=== PATIENT | female | born 1990 | race Caucasian/White ===

== ENCOUNTER 2018-12-18 19:34 | Emergency (ER) | payer MEDICAID, SELFPAY ==
[2018-12-18 19:36] VITALS: BP 115/79; PULSE 102; RESP 14; TEMP 36.6; O2SAT 97; BMI 23.9
--- NOTE | 2018-12-18 19:47 | ED.DCSUM_ITS ---
History of Present Illness Chief Complaint: Abd Pain Detail of Chief Complaint: Abdominal pain, nausea, diarrhea Onset: Days Context: Gradual Onset Narrative: Patient was seen by her PCP 9 days ago and found to have strep pharyngitis. At that time she been having fever and sore throat. She was started on Augmentin. A couple days after starting the antibiotics she developed nausea, upper abdominal cramping, and diarrhea. She stopped the antibiotic after 5 days of medication. She states the diarrhea is starting to improve, but she still has intermittent upper abdominal cramping and spasms. No further fever has been noted. Throat is not painful, but she states she has no appetite and does not want to eat. Past Medical History - Allergies and Home Meds Allergies/Adverse Reactions: Allergies No Known Allergies Allergy (Verified 12/18/18 19:35) Primary Care Physician: Brian Gamboa MD [Primary Care Provider] - Prior records reviewed: Yes Past Medical History: - - Reviewed Lives: With Family Smoking Status: Current every day smoker Review of Systems General: Denies: Chills Eyes: Denies: Visual changes - bilaterally ENT: Denies: Bilateral ear pain Cardiovascular: Denies: Chest pain Respiratory: Denies: Dyspnea Gastrointestinal: Reports: Abdominal pain, Nausea, Diarrhea. Denies: Vomiting Genitourinary: Denies: Dysuria Musculoskeletal: Denies: Back pain Skin: Denies: Rash Neurological: Denies: Headache Endocrine: Denies: Polyuria, Polydipsia Hematologic: Denies: Easy bruising Allergy: Denies: Uticaria Physical Exam Vital Signs/Narrative: Vital Signs Temp Pulse Resp BP Pulse Ox 12/18/18 19:36 97.9 F 102 H 14 115/79 97 Inital Vital Signs reviewed: Yes General: Well nourished, Well developed Eyes: Perrl, EOMI ENT: Moist mucous membranes Neck: Supple Cardiovascular: Regular rate, Regular rhythm Respiratory: No distress, CTA bilaterally Abdomen: Soft, Tender - Mild epigastric tenderness., Hypoactive bowel sounds. Negative for: Guarding, Rebound tenderness Back: Nontender Extremities: Nontender Skin: Normal color, No rash Neurological: Alert, Oriented x3 Psychological: Normal affect Diagnostic/Tx/Re-eval Laboratory Results 12/18/18 12/18/18 12/18/18 20:04 20:04 20:04 WBC 9.2 RBC 4.70 Hgb 14.3 Hct 43.1 MCV 91.7 MCH 30.4 MCHC 33.2 RDW Std Deviation 40.0 RDW Coeff of Adelita 11.9 Plt Count 288 MPV 8.4 Immature Gran % (Auto) 0.300 Neut % (Auto) 56.4 Lymph % (Auto) 34.1 [place] % (Auto) 7.0 Eos % (Auto) 1.9 Baso % (Auto) 0.3 Absolute Neuts (auto) 5.2 Absolute Lymphs (auto) 3.15 Nucleated RBC % 0 Sodium 140 Potassium 3.7 Chloride 108 H Carbon Dioxide 29.0 Anion Gap 3 L BUN 17 Creatinine 0.74 Estim Creat Clear Calc 88.72 Est GFR (MDRD) Af Amer 118 Est GFR (MDRD) Non-Af 98 BUN/Creatinine Ratio 22.8 H Glucose 142 H Calcium 9.0 Total Bilirubin 0.20 Direct Bilirubin 0.06 AST 16 ALT 30 Alkaline Phosphatase 96 Total Protein 7.0 Albumin 3.8 Globulin 3.2 Lipase 261 Serum , Qual NEGATIVE Urine Color Urine Clarity Urine pH Ur Specific [place] Urine Protein Urine Glucose (UA) Urine Ketones Urine Occult Blood Urine Nitrite Urine Bilirubin Urine Urobilinogen Ur Leukocyte Esterase Urine RBC Urine WBC Ur Squamous Epith Cells Amorphous Sediment Urine Bacteria Coarse Granular Casts Urine Mucus 12/18/18 20:25 WBC RBC Hgb Hct MCV MCH MCHC RDW Std Deviation RDW Coeff of Adelita Plt Count MPV Immature Gran % (Auto) Neut % (Auto) Lymph % (Auto) [place] % (Auto) Eos % (Auto) Baso % (Auto) Absolute Neuts (auto) Absolute Lymphs (auto) Nucleated RBC % Sodium Potassium Chloride Carbon Dioxide Anion Gap BUN Creatinine Estim Creat Clear Calc Est GFR (MDRD) Af Amer Est GFR (MDRD) Non-Af BUN/Creatinine Ratio Glucose Calcium Total Bilirubin Direct Bilirubin AST ALT Alkaline Phosphatase Total Protein Albumin Globulin Lipase Serum , Qual Urine Color Yellow Urine Clarity Cloudy Urine pH 7.0 Ur Specific [place] 1.015 Urine Protein Negative Urine Glucose (UA) Normal Urine Ketones Negative Urine Occult Blood 10 H Urine Nitrite Negative Urine Bilirubin Negative Urine Urobilinogen Normal Ur Leukocyte Esterase Negative Urine RBC 0-5 SEEN Urine WBC 0-5 SEEN Ur Squamous Epith Cells 0-5 SEEN Amorphous Sediment 1+ Urine Bacteria 0 SEEN Coarse Granular Casts 0-5 SEEN Urine Mucus 0 SEEN - Medical Decision Making Patient was given IV fluids, Protonix, and Bentyl. On repeat evaluation she feels significantly improved. She will be given prescriptions for Prilosec and Bentyl at home. ED Disposition - Plan for ED Patient: Disposition: Home or Assisted Living Diagnosis: Gastritis Instructions: GASTRITIS vs. ULCER Prescriptions: Dicyclomine HCl [Bentyl] 20 mg PO TIDAC PRN #20 capsule PRN Reason: Pain Omeprazole [Prilosec] 20 mg PO DAILY #30 capsule Referrals: Brian Gamboa MD [Primary Care Provider] - 1-2 Weeks
[2018-12-18 20:10] LABS: Absolute Lymphocyte Count 3.15 X10^3/uL (0.83-4.51); Absolute Neutrophil Count 5.2 X10^3/uL (2.0-7.7); Basophil# 0.03 X10^3/uL; Basophil% 0.3 % (0-1); Eosinophil# 0.18 X10^3/uL; Eosinophils% 1.9 % (0-5); Hematocrit 43.1 % (37-47); Hemoglobin 14.3 g/dL (12.0-15.0); Lymphocyte # 3.15 X10^3/ul (4.0); Lymphocyte % 34.1 % (19-41); Mean Corp Hgb Conc 33.2 g/dL (32-36); Mean Corpuscular Hgb 30.4 pg (27.0-32.0); Mean Corpuscular Volume 91.7 fL (81-99); Mean Platelet Vol. 8.4 fl (6.2-12.0); Monocyte# 0.65 X10^3/uL; NRBC Flagged by Analyzer 0 % (0-5); Neutrophil % 56.4 % (47-70); Platelet Count 288 K/mm3 (150-450); RBC Distribution Width CV 11.9 % (11.6-14.6); White Blood Count 9.2 K/mm3 (4.4-11.0)
[2018-12-18] MEDS: 0.9% Normal Saline 1,000 ML 1000 ML IV (20:10)
[2018-12-18] MEDS: Dicyclomine 20 MG/2 ML Vial IM (20:10)
[2018-12-18 20:29] LABS: Internal QC Validated? YES +Cl - CLEAR BKGD; Pregnancy, Serum, hCG Quali. NEGATIVE Negative
[2018-12-18 20:30] LABS: Bacteria 0 SEEN /hpf (None Seen); Mucous, Urine 0 SEEN /hpf (<or=2+)
[2018-12-18 20:32] LABS: AST(SGOT) 16 U/L (15-37); Alanine Aminotransfer ALT/SGPT 30 U/L (13-56); Albumin, Serum 3.8 g/dL (3.2-5.0); Alkaline Phosphatase 96 U/L (45-117); Anion Gap 3 (5-15); BUN 17 mg/dL (7-18); BUN/Creat Ratio 22.8 RATIO (10-20); Bilirubin, Direct 0.06 mg/dL (0.00-0.30); Chloride 108 mmol/L (98-107); Creatinine, Serum 0.74 mg/dL (0.55-1.02); EST Glomerular Filtration Rate 98 mL/min (>60); Est Glom Filt Rate - Afr Amer 118 mL/min (>60); Estimated Creatinine Clearance 88.72 ml/min; Globulin 3.2 g/dL (2.2-4.2); Glucose 142 mg/dL (74-106); Lipase 261 U/L (73-393); Potassium 3.7 mmol/L (3.5-5.1); Sodium Level 140 mmol/L (136-145)
[2018-12-18 20:35] LABS: Color, Urine Yellow (Yellow); Glucose, Dipstick Normal (Normal); Ketone-Dipstick Negative (Negative); Leukocyte Esterase-Dipstick Negative /ul (Negative); Nitrite-Dipstick Negative (Negative); Occult Blood-Urine 10 /ul (Negative); Protein-Dipstick Negative (Negative); Specific Gravity, Urine 1.015 (1.002-1.030); Urine Bilirubin Dipstick Negative (Negative); Urine Clarity Cloudy (Clear); Urine Urobilinogen Normal (Normal)
[2018-12-18 20:42] LABS: Coarse Granular Cast 0-5 SEEN /lpf (0-5 /lpf); Squamous Epithelial Cells - UA 0-5 SEEN /hpf (5-10)
[2018-12-18 20:44] LABS: Amorphous Sediment 1+; Red Blood Cells-Urine 0-5 SEEN /hpf (0-5); White Blood Cells 0-5 SEEN /hpf (0-5)
[2018-12-18 21:21] VITALS: BP 112/74; PULSE 78; RESP 15; O2SAT 99
== END 2018-12-18 21:20 | disposition home or self-care (01) ==
PROVIDERS: Emergency Provider Emergency Medicine; Family Provider Family Medicine; PCP Family Medicine
DX: K29.70 Gastritis, unspecified, without bleeding (principal); F17.200 Nicotine dependence, unspecified, uncomplicated
CPT/HCPCS: 80048; 80076; 81001; 83690; 84703; 85025; 96365; 96372; 99284; J7030; A4216

== ENCOUNTER 2019-02-23 21:27 | Emergency (ER) | payer MEDICAID, SELFPAY ==
[2019-02-23 21:27] VITALS: BP 119/84; PULSE 97; RESP 16; TEMP 36.9; O2SAT 99; BMI 24.5
--- NOTE | 2019-02-23 21:48 | ED.VIS.GEN ---
History of Present Illness Chief Complaint: Abscess Informant: Patient Onset: Month(s) Current Severity: Mild Narrative: The patient's had a lesion to her scalp left parietal region for about a year she indicates she can feel it when she washes her hair and abreu her hair she feels if the lesion is now more irritated she thought it might have been draining the other day when she took a shower she presents for evaluation concerned she has an abscess, she has no history of fever cough trauma, no history of any type of skin condition MRSA or infection Past Medical History - Allergies and Home Meds Allergies/Adverse Reactions: Allergies No Known Allergies Allergy (Verified 02/23/19 21:29) Primary Care Physician: Brian Gamboa MD [Primary Care Provider] - Past Medical History: - Smoking Status: Current every day smoker Review of Systems ROS: - Denies General: Denies: Chills, Fever, Sweats Eyes: Denies: Visual changes - bilaterally, Diplopia ENT: Denies: Rhinorrhea, Sore throat Cardiovascular: Denies: Chest pain, Palpitations Respiratory: Denies: Dyspnea, Cough, Dyspnea on exertion Gastrointestinal: Denies: Abdominal pain, Nausea, Vomiting, Diarrhea, Melena, Hematochezia Genitourinary: Denies: Dysuria, Hematuria, Frequency Musculoskeletal: Denies: Back pain, Extremity Pain Skin: Denies: Rash, Wounds Neurological: Denies: Headache, Weakness, Numbness Physical Exam Vital Signs/Narrative: Vital Signs Temp Pulse Resp BP Pulse Ox 02/23/19 21:27 98.4 F 97 16 119/84 H 99 General: Well nourished, Well developed, No Acute Distress Head: Normocephalic, Atraumatic, - - The left parietal area there is a circular 3 mm basically black dot it is not tender is not fluctuant it is not red it is not draining the rest of the scalp was unremarkable, there is no signs of any type infestations or lesions the rest of her general HEENT exam is unremarkable as is her general medical exam Eyes: Perrl, EOMI ENT: Moist mucous membranes, No rhinorrhea Neck: Supple, Nontender Cardiovascular: Regular rate, Regular rhythm, No murmurs Respiratory: No distress, CTA bilaterally, Chest nontender Abdomen: Soft, Nontender, Nondistended, Normal bowel sounds Back: Nontender, Normal Inspection Extremities: Nontender, No edema Skin: Normal color, No rash Neurological: Alert, Oriented x3, Cranial nerves II-XII grossly intact, Normal Strength, Normal Sensation Psychological: Normal affect, Normal Mood Diagnostic/Tx/Re-eval - Medical Decision Making This lesion has been there for a year explained to the patient the exact etiology of it is unclear there is no signs at this time any active infection I feel is more appropriate that she be seen by dermatology to have this further evaluated she notices no skin loss no hair loss and again there is no drainage and she has no history of MRSA Because of her concern she will be prescribed Bactrim DS to use as a [id number] measure and follow-up with her providers for dermatology referral Monday Home stable Final impression Scalp lesion etiology unclear ED Disposition - Plan for ED Patient: Diagnosis: Scalp lesion Instructions: Cellulitis Prescriptions: Smz/Tmp Ds [Bactrim Ds] 1 tab PO BID #14 tab Prescription Printed Referrals: Brian Gamboa MD [Primary Care Provider] - Additional Instructions: Follow-up with your outpatient providers for referral to dermatology and further management
[2019-02-23 21:56] VITALS: RESP 16
== END 2019-02-23 22:11 | disposition home or self-care (01) ==
LOC: ED 22:07
PROVIDERS: Emergency Provider Emergency Medicine; Family Provider Family Medicine; PCP Family Medicine
DX: L98.9 Disorder of the skin and subcutaneous tissue, unspecified (principal); F17.200 Nicotine dependence, unspecified, uncomplicated
CPT/HCPCS: 99282

== ENCOUNTER 2019-10-08 01:03 | Emergency (ER) | payer MEDICAID, SELFPAY ==
[2019-10-08] VITALS (32 sets, daily range): BP systolic 104–131; BP diastolic 45–89; PULSE 99–127; RESP 14–20; TEMP 34.6–36.7; O2SAT 95–100; BMI 20.7
[2019-10-08] MEDS: Naloxone 2 MG/2 ML Syringe IV ×2 (01:05→01:07)
[2019-10-08] MEDS: Etomidate 20 MG/10 ML Vial IV (01:12)
[2019-10-08] MEDS: Succinylcholine Chloride 200 MG/10 ML Vial 100 MG IV (01:13)
--- NOTE | 2019-10-08 01:22 | CT_ITS ---
STUDY: CT BRAIN WITHOUT CONTRAST REASON FOR EXAM: Female, 28 years old patient is unresponsive. RADIATION DOSAGE (If Supplied By Facility): CTDIvol = ( 44.99 ) mGy, DLP = ( 796.11 ) mGycm TECHNIQUE: Transaxial CT imaging of the brain was performed without administration of intravenous contrast material. Multiplanar reformations are submitted for interpretation. Individualized dose optimization techniques were used for this CT. COMPARISON: No relevant priors. FINDINGS: Normal soft tissue structures. Normal calvarium. Normal size ventricles and extra-axial spaces for the patient''s age. Normal white matter tracts of the cerebral hemispheres. Normal basal ganglia and thalami. Normal brainstem. Normal cerebellum. There is no intracranial hemorrhage. There are no findings of an acute ischemic infarction. Normal visualized paranasal sinuses. Patient is intubated. CT/Brain/Head without Contrast IMPRESSION: Normal unenhanced CT scan of the brain. Electronically Signed: Elsy Sarabia MD at 3:23 EDT , Service support ,
--- NOTE | 2019-10-08 01:22 | EKG12_ITS ---
Test Reason : DYSRHYTHMIA Blood Pressure : / mmHG Vent. Rate : 111 BPM Atrial Rate : 111 BPM P-R Int : 166 ms QRS Dur : 102 ms QT Int : 372 ms P-R-T Axes : 072 079 021 degrees QTc Int : 505 ms Sinus tachycardia Otherwise normal ECG Confirmed by TIMBO KIRKPATRICK, MARC ([id number]), field map editor FREYA TURCIOS ([id number]) on 10/11/2019 10:54:09 AM Referred By: DC Confirmed By:MARC IZQUIERDO MD
--- NOTE | 2019-10-08 01:22 | RAD_ITS ---
STUDY: X-RAY CHEST REASON FOR EXAM: Female, 28 years old patient with respiratory distress with recent intubation and placement of orogastric tubes. TECHNIQUE: Single AP portable view of the chest. COMPARISON: Chest radiograph dated February 17, 2017. FINDINGS: The tip of the endotracheal tube is located approximately 9.3 cm proximal to the zulma. This probably should be advanced 3 cm. Enteric tube is present with the tip below the hemidiaphragms and below the inferior edge of the image. Cardiac monitoring leads are present. The lungs are clear and expanded. There is no demonstrated pleural abnormality. Normal size heart. Normal mediastinum and kerry. Normal visualized pulmonary arteries. Normal visualized aortic arch and descending thoracic aorta. Normal visualized thoracic spine. Normal visualized ribs, clavicles, and shoulders. There is no demonstrated abnormality of the visualized soft tissue structures of the upper abdomen. RAD/Chest 1 View (Portable) IMPRESSION: Suggest repositioning the endotracheal tube. Electronically Signed: Elsy Sarabia MD at 1:54 EDT , Service support ,
[2019-10-08] MEDS: Propofol 10MG/Ml 1,000 MG/100 ML Bottle 3.4 MG CONT INF (01:25)
[2019-10-08 01:32] LABS: Bacteria 0 SEEN /hpf (None Seen); Mucous, Urine 0 SEEN /hpf (<or=2+); Squamous Epithelial Cells - UA 0 SEEN /hpf (5-10); White Blood Cells 0 SEEN /hpf (0-5)
[2019-10-08 01:35] LABS: Absolute Lymphocyte Count 8.05 X10^3/uL (0.83-4.51); Absolute Neutrophil Count 5.9 X10^3/uL (2.0-7.7); Basophil# 0.08 X10^3/uL; Basophil% 0.5 % (0-1); Eosinophil# 0.46 X10^3/uL; Eosinophils% 2.9 % (0-5); Hematocrit 46.8 % (37-47); Hemoglobin 14.2 g/dL (12.0-15.0); Lymphocyte # 8.05 X10^3/ul (4.0); Lymphocyte % 50.7 % (19-41); Mean Corp Hgb Conc 30.3 g/dL (32-36); Mean Corpuscular Hgb 31.2 pg (27.0-32.0); Mean Corpuscular Volume 102.9 fL (81-99); Mean Platelet Vol. 8.9 fl (6.2-12.0); Monocyte# 0.93 X10^3/uL; Monocyte% 5.9 % (0-10); NRBC Flagged by Analyzer 0 % (0-5); Neutrophil # 5.92 X10^3/uL (2.7-7.7); Neutrophil % 37.2 % (47-70); POSITIVE DIFFERENTIAL YES; Platelet Count 290 K/mm3 (150-450); RBC Distribution Width SD 45.1 fl (35.1-43.9); Red Blood Count 4.55 M/mm3 (4.2-5.4); White Blood Count 15.9 K/mm3 (4.4-11.0)
[2019-10-08] MEDS: 0.9% Normal Saline 1,000 ML 1000 ML IV (01:35)
[2019-10-08 01:39] LABS: International Normalized Ratio 1.2; Prothrombin Time (Protime)PT. 14.2 SECONDS (11.7-14.9)
[2019-10-08 01:40] LABS: Partial Thromboplast Time 30.1 Seconds (24.1-36.2)
[2019-10-08 01:40] LABS: Color, Urine Yellow (Yellow); Glucose, Dipstick 1000 mg/dl (Normal); Internal QC Validated? YES +Cl - CLEAR BKGD; Ketone-Dipstick Negative (Negative); Leukocyte Esterase-Dipstick Negative /ul (Negative); Nitrite-Dipstick Negative (Negative); Occult Blood-Urine 10 /ul (Negative); Pregnancy, Serum, hCG Quali. NEGATIVE Negative; Protein-Dipstick 15 mg/dl (Negative); Specific Gravity, Urine 1.015 (1.002-1.030); Urine Bilirubin Dipstick Negative (Negative); Urine Clarity Clear (Clear); Urine Urobilinogen Normal (Normal)
[2019-10-08 01:41] LABS: Differential Indicated SCAN CRITERIA MET
[2019-10-08 01:41] LABS: Bedside Glucose 426 mg/dL (70-110)
[2019-10-08 01:45] LABS: Red Blood Cells-Urine 0-5 SEEN /hpf (0-5)
[2019-10-08 01:47] LABS: Amphetamine Urine VISTA NEGATIVE (<1000 ng/mL); Barbiturate Urine VISTA NEGATIVE (< 200 ng/mL); Benzodiazepine Urine VISTA NEGATIVE (< 200 ng/mL); Cocaine Urine VISTA NEGATIVE (< 300 ng/mL); Ecstacy Urine VISTA NEGATIVE (< 500 ng/mL); Methadone Urine VISTA NEGATIVE (< 300 ng/mL); PCP Urine VISTA NEGATIVE (< 25 ng/mL); THC Urine VISTA NEGATIVE (< 50 ng/mL); Vista UDS pH Range 6
[2019-10-08] MEDS: Propofol 200 MG/20 ML Vial 50 MG IV BOLUS ×3 (01:50→07:05)
[2019-10-08 01:51] LABS: ALB/GLOB Ratio 1.2 RATIO (0.9-2.4); AST(SGOT) 38 U/L (15-37); Alanine Aminotransfer ALT/SGPT 51 U/L (13-56); Albumin, Serum 3.7 g/dL (3.2-5.0); Alkaline Phosphatase 99 U/L (45-117); Anion Gap 16 (5-15); BUN 10 mg/dL (7-18); BUN/Creat Ratio 9.1 RATIO (10-20); Calcium,Total 8.2 mg/dL (8.5-10.1); Chloride 102 mmol/L (98-107); EST Glomerular Filtration Rate 62 mL/min (>60); Est Glom Filt Rate - Afr Amer 75 mL/min (>60); Estimated Creatinine Clearance 67.54 ml/min; Globulin 3.1 g/dL (2.2-4.2); Glucose 589 mg/dL (74-106); Potassium 2.6 mmol/L (3.5-5.1); Protein, Total 6.8 g/dL (6.4-8.2); Sodium Level 138 mmol/L (136-145)
[2019-10-08 01:55] LABS: Differential Comment SCANNED
[2019-10-08 01:59] LABS: Magnesium 3.2 mg/dL (1.6-2.6)
[2019-10-08 02:00] LABS: Lactic Acid 7.7 mmol/L (0.4-1.9)
[2019-10-08] MEDS: Midazolam 5 MG/ML Syringe 4 MG IV (02:05)
--- NOTE | 2019-10-08 02:21 | CT_ITS ---
STUDY: CTA CHEST REASON FOR EXAM: Female, 28 years old patient is unresponsive. RADIATION DOSAGE (If Supplied By Facility): CTDIvol = ( 15.08 ) mGy, DLP = ( 1243.37 ) mGycm TECHNIQUE: The examination was performed with the intravenous administration of 100 mL of Isovue-370. Post-processing of the angiographic images was performed, with multiplanar reformation and 3D reconstruction. Individualized dose optimization techniques were used for this CT. COMPARISON: Prior comparison studies are not available for review at this time. FINDINGS: Patient is intubated. Tip of endotracheal tube is at the level of the aortic arch. Enteric tube is present with the distal end not present on the study but located below the hemidiaphragms. Normal enhancement of the main pulmonary artery and right and left pulmonary arteries. Normal enhancement of the bilateral peripheral pulmonary arteries. There is no demonstrated pulmonary embolism. Normal thoracic aorta and visualized great vessels. There is no demonstrated aortic dissection. Normal heart and pericardium. Normal mediastinum. Normal hilar regions. Normal visualized trachea and bronchi. The lungs are well expanded. There is bilateral basilar dependent atelectasis. The lungs otherwise appear to be clear. Normal pleura. Normal chest wall structures. Normal osseous structures. Normal visualized upper abdomen. CT/CTA Chest W/WO Contrast IMPRESSION: 1. No CTA demonstrated pulmonary embolism or arterial dissection. 2. Bilateral basilar dependent atelectasis. Electronically Signed: Elsy Sarabia MD at 3:43 EDT , Service support ,
--- NOTE | 2019-10-08 02:21 | CT_ITS ---
STUDY: CT ABDOMEN AND PELVIS WITH CONTRAST REASON FOR EXAM: Female, 28 years old patient is unresponsive. RADIATION DOSAGE (If Supplied By Facility): CTDIvol = ( 15.08 ) mGy, DLP = ( 1243.37 ) mGycm TECHNIQUE: Transaxial images were obtained from the dome of the diaphragm to the symphysis pubis without oral contrast. 100 ml of IV Isovue-370 was administered. Sagittal and coronal images were reconstructed. Individualized dose optimization techniques were used for this CT. COMPARISON: Prior comparison studies are not available for review at this time. FINDINGS: There is bilateral basilar dependent atelectasis and/or patchy airspace disease. The visualized portions of the heart are within normal limits. There is hepatomegaly with diffuse hepatic enlargement. Maximum dimension of the liver is approximately 20 cm. Normal gallbladder and extrahepatic biliary system. Normal spleen. Normal pancreas. Normal bilateral adrenal glands. Normal right kidney. Normal left kidney. There is prompt excretion of contrast by both kidneys. Opacified ureters have normal course and caliber to the urinary bladder. Normal visualized stomach. Enteric tube tip is visible in the stomach. There is no evidence for dilated bowel, ascites or pneumoperitoneum. There is some fluid filled small bowel which could be result of acute infection or inflammation. Stool and/or gas is visible throughout the colon. The appendix is visualized and appears normal. Normal abdominal aorta. Normal inferior vena cava. Normal retroperitoneum. There is contrast visible in the urinary bladder. The urinary bladder is nondistended secondary to Watson catheter. Normal visualized prostate gland. Normal abdominal wall. Normal osseous structures. CT/Abdomen/Pelvis W IV Cont ONLY IMPRESSION: 1. Fluid-filled small bowel with enhancement of small bowel wall suggests possible sequela of acute gastroenteritis. 2. Hepatomegaly. 3. Bilateral basilar dependent atelectasis versus patchy airspace disease. Electronically Signed: Elsy Sarabia MD at 3:19 EDT , Service support ,
[2019-10-08] MEDS: 0.9% Normal Saline 1,000 ML 999 ML IV (02:30)
--- NOTE | 2019-10-08 02:30 | ED.DCSUM_ITS ---
- ER Visit Summary Date of Service: 10/08/19 Chief Complaint: Unresponsive History of Present Illness: The patient is a 28 F who is unable to provide history based on her medical condition. She presents with a significant other who provides information. She was with her children. She had been drinking up to 6 beers. She leaned forward this evening and went unresponsive. Prior to this, she never had anything like this before. She had seizures as a child, but none as an adult. She is not on antiepileptics. Her significant other thinks she might of been taking Ativan. She has headaches from time to time, but was not complaining of a headache today. No fevers or recent illness. No known complaints at all today. He thinks she may have used opioids in the past, but he does not believe she used any today. Records show a history of gastritis and bilateral partial distal salpingectomies. Occasional alcohol use. Physical Examination: Afebrile. Heart rate 121 and respiratory rate 14. Patient is unresponsive, including no response to pain. She has bilateral dilated and sluggish pupils. GCS 3. Pulses strong. Respirations are assisted with bag valve mask. Test Results: See below Emergency Department Course and Treatment: Patient is unresponsive, [id number] respirations in process. IV access was obtained and the patient was placed on a monitor. Good oxygenation with bag valve mask and good vital signs. She was treated with Narcan, a total of 4 mg IV with no response. With no change in condition, the patient was intubated. I attempted with a glide scope. The only blade available due to a supply shortage was too small to get good visualization, so bagging was resumed. Second attempt with the old glide scope and a larger blade (3) was successful. Patient had condensation, bilateral breath sounds, good color change, and did not desaturate. Chest x-ray showed that the tube needed to be advanced, and was advanced 3 cm by respiratory therapy. IV fluids started. Patient was sedated with propofol and then Versed as she started to fight the ventilator. EKG showed sinus rhythm at a rate of 111 with no acute changes. ABG showed a pH of 7.165, CO2 40, O2 156. Gap 16. White count was 15.9. Again, patient had no prior infectious symptoms, and it was felt that sepsis was not unlikely because of her abrupt mental status change. Cultures pending. Potassium 2.6. Magnesi um 3.2. Potassium was replaced. Glucose 589. I did not start insulin right away and she was being treated with IV fluids, her ketones were negative, and her potassium was only 2.6.. Hepatic panel unremarkable. Coags normal. Urinalysis unremarkable. Troponin normal. Lactate 7.7. Patient received normal saline 30/kg. test was negative. Tox screen negative. Alcohol 150. Fluid resuscitation continued. Patient was treated with potassium replacement. She had a temp of 94 and was treated with a bear hugger. CT brain, chest, abdomen/pelvis ordered. I contacted the hospitalist at this facility. We were concerned she may need EEG and neurology. These are not available at this facility. I spoke with the family who requested [facility]. I called for transfer. Electric Meter Installer requested imaging results from the CTs prior to transfer. I also added on cultures and COVID testing. Her CT results were all fairly unremarkable. Possible acute gastroenteritis, but the patient has no GI symptoms or other findings. I spoke with the winding lathe operator again who advised that they do not have beds available. I spoke with our hospitalist here, and he did not feel that we could provide the care that she needed. I spoke with the family who were agreeable to transfer [facility]. Patient was accepted by . I am suspecting alcohol intoxication with some other ingestion. He had no further orders at this time. We are awaiting transport. Repeat GGT was 58 after IV fluids. Patient received D50. Treatment Plan: As above Disposition: Transfer Impression: Hypoxic respiratory failure High anion gap metabolic acidosis, lactic acidosis Hypokalemia Hyperglycemia This note was generated with Qoof dictation software. It may contain incorrect words, spelling, and punctuation that were not noted in review of the chart prior to signing ED Disposition - Plan for ED Patient: Referrals: Brian Gamboa MD [Primary Care Provider] -
[2019-10-08] MEDS: Potassium Chloride 10mEq/100mL 10 MEQ/100 ML IV.SOLN. 100 MEQ IV BOLUS ×4 (03:30→06:30)
[2019-10-08 03:40] LABS: Allen Test POS; Blood Gas Specimen Type ART; Mode A-C; SITE L RADIAL
--- NOTE | 2019-10-08 03:40 | ED.RN ---
bear hugger applied in addition to warm blankets
[2019-10-08 03:41] LABS: FI02 30; O2 Delivery Device Vent; PEEP 5; RR 14; Vt 400
[2019-10-08 03:42] LABS: Base Excess -14 mmol/L (-2 to +2); Bicarbonate 14.6 mmol/L (22-26); PO2 156 mmHG (75-100); SO2 99 % (95-99); Time Given 202; Total Carbon Dioxide 16 mmol/L; pCO2 40.5 mmHg (35-45); pH 7.17 (7.35-7.45)
--- NOTE | 2019-10-08 03:44 | CPS ---
Critical pH received and read by Dr. Ng in ED
--- NOTE | 2019-10-08 04:08 | ED.RN ---
VENT SETTINGS - TV = 400, RATE = 14, FIO2 = 30%, PEEP = 5
[2019-10-08 04:32] LABS: Acetaminophen (Tylenol) Level < 2.0 ug/mL (10.0-30.0); Salicylate 3.8 mg/dL (2.8-20.0)
[2019-10-08] MEDS: Propofol 200 MG/20 ML Vial 60 MG IV BOLUS (04:40)
[2019-10-08 04:54] LABS: Specimen Processing Control PASS
[2019-10-08 04:55] LABS: Probe Check PASS
[2019-10-08] MEDS: Dextrose 50%-Water 25 GM/50 ML DISP.SYRIN IV ×2 (05:20→06:53)
[2019-10-08 05:30] LABS: Reflex Lactate? Y
[2019-10-08 05:46] LABS: Bedside Glucose 190 mg/dL (70-110)
[2019-10-08 05:56] LABS: Absolute Lymphocyte Count 1.46 X10^3/uL (0.83-4.51); Absolute Neutrophil Count 11.9 X10^3/uL (2.0-7.7); Basophil# 0.02 X10^3/uL; Basophil% 0.1 % (0-1); Eosinophil# 0.01 X10^3/uL; Eosinophils% 0.1 % (0-5); Hematocrit 40.2 % (37-47); Lymphocyte # 1.46 X10^3/ul (4.0); Lymphocyte % 10.2 % (19-41); Mean Corp Hgb Conc 32.3 g/dL (32-36); Mean Corpuscular Hgb 31.3 pg (27.0-32.0); Mean Corpuscular Volume 96.6 fL (81-99); Mean Platelet Vol. 8.8 fl (6.2-12.0); Monocyte# 0.91 X10^3/uL; Monocyte% 6.3 % (0-10); NRBC Flagged by Analyzer 0 % (0-5); Neutrophil # 11.88 X10^3/uL (2.7-7.7); Neutrophil % 82.7 % (47-70); Platelet Count 215 K/mm3 (150-450); RBC Distribution Width CV 12.2 % (11.6-14.6); RBC Distribution Width SD 42.7 fl (35.1-43.9); Red Blood Count 4.16 M/mm3 (4.2-5.4); White Blood Count 14.4 K/mm3 (4.4-11.0)
[2019-10-08 06:25] LABS: Base Excess -5 mmol/L (-2 to +2); Bicarbonate 22.5 mmol/L (22-26); PO2 97 mmHG (75-100); SO2 96 % (95-99); Total Carbon Dioxide 24 mmol/L; pCO2 49.6 mmHg (35-45); pH 7.26 (7.35-7.45)
[2019-10-08 06:30] LABS: Lactic Acid 1.8 mmol/L (0.4-1.9)
[2019-10-08 06:31] LABS: Allen Test POS; Blood Gas Specimen Type ART; FI02 30; Mode A-C; O2 Delivery Device Vent; PEEP 5; RR 14; SITE L RADIAL; Vt 400
[2019-10-08 06:37] LABS: Anion Gap 4 (5-15); BUN 9 mg/dL (7-18); BUN/Creat Ratio 14.7 RATIO (10-20); Calcium,Total 7.2 mg/dL (8.5-10.1); Chloride 113 mmol/L (98-107); Creatinine, Serum 0.61 mg/dL (0.55-1.02); EST Glomerular Filtration Rate 122 mL/min (>60); Est Glom Filt Rate - Afr Amer 147 mL/min (>60); Glucose 162 mg/dL (74-106); Potassium 4.2 mmol/L (3.5-5.1); Sodium Level 142 mmol/L (136-145)
[2019-10-08 06:50] LABS: Bedside Glucose 70 mg/dL (70-110)
[2019-10-08] MEDS: Propofol 10MG/Ml 1,000 MG/100 ML Bottle 17 MG CONT INF (07:18)
[2019-10-10 01:09] LABS: Methyl Alcohol Negative % (0.000-0.010)
[2019-10-12 09:26] LABS: Bedside Glucose 58 mg/dL (70-110)
[2019-10-12 09:26] LABS: Bedside Glucose 50 mg/dL (70-110)
== END 2019-10-08 07:22 | disposition short-term general hospital (02) ==
LOC: ED 01:10
PROVIDERS: Emergency Provider Emergency Medicine; PCP Family Medicine
DX: J96.91 Respiratory failure, unspecified with hypoxia (principal); E87.2 Acidosis; E87.6 Hypokalemia; R73.9 Hyperglycemia, unspecified
CPT/HCPCS: 31500; 31720; 36600; 51702; 70450; 71045; 71275; 74177; 80048; 80053; 80307; 80320; 80329; 81001; 82009; 82803; 82962; 83605; 83735; 84484; 84703; 85025; 85610; 85730; 87040; 87086; 87635; 93005; 94002; 96361; 96365; 96366; 96375; 96376; 99251; 99285; G2023; J7030; A4216; G0463; G0480; J0330; U0003

== ENCOUNTER → 2020-05-21 12:22 | Outpatient (CLI) | payer MEDICAID, SELFPAY ==
[2019-10-08 01:06] VITALS: BMI 20.7
[2020-05-27 08:45] LABS: HPV APTIMA, High Risk Negative (Negative)
[2020-05-27 15:13] LABS: HIV - WCH Non-Reactive (Nonreactive); Hepatitis B Surface Antigen Non-Reactive (Nonreactive); Hepatitis C Antibody Non-Reactive (Nonreactive)
[2020-05-28 03:03] LABS: Rapid Plasmin Reagin (RPR) NONREACTIVE (NONREACTIVE)
== END ==
PROVIDERS: PCP Family Medicine; Referring Provider Obstetrics & Gynecology; Visit Provider Obstetrics & Gynecology
DX: Z12.4 Encounter for screening for malignant neoplasm of cervix (principal); Z11.3 Encounter for screening for infections with a predominantly sexual mode of transmission
CPT/HCPCS: 36415; 86592; 86703; 86803; 87340; 87624; 88175; G0145

== ENCOUNTER 2020-07-27 15:16 | Emergency (ER) | payer MEDICAID, SELFPAY ==
[2019-10-08 01:06] VITALS: BMI 20.7
[2020-07-27 15:17] VITALS: BP 115/79; PULSE 103; RESP 15; TEMP 36.1; O2SAT 100; BMI 24.7
[2020-07-27 15:23] VITALS: BP 115/79; PULSE 103; RESP 15; TEMP 36.1; O2SAT 100
--- NOTE | 2020-07-27 15:35 | RAD_ITS ---
STUDY: X-RAY CHEST REASON FOR EXAM: Female, 29 years old. cough TECHNIQUE: Single frontal view of the chest. COMPARISON: CT chest 10/08/2019 FINDINGS: The lungs are clear and expanded. There is no demonstrated pleural abnormality. Normal size heart. Normal mediastinum and kerry. Normal visualized pulmonary arteries. Normal visualized aortic arch and descending thoracic aorta. Normal visualized thoracic spine. Normal visualized ribs, clavicles, and shoulders. There is no demonstrated abnormality of the visualized soft tissue structures of the upper abdomen. RAD/Chest 1 View (Portable) IMPRESSION: Normal x-ray examination of the chest. Electronically Signed: Asim Bob MD at 17:20 EDT , Service support ,
--- NOTE | 2020-07-27 15:43 | ED.VIS.GEN ---
History of Present Illness Chief Complaint: Cough Informant: Patient Narrative: 29-year-old female presenting with cough and shortness of breath and chest tightness. Patient is a smoker. She states that she has developed worsening cough with sputum production. No fevers. She notes headache and today some generalized chest tightness but then also some chest soreness on the left lower mid axillary anterior ribs. Symptoms have been present now for 5 days. She has never been diagnosed with Covid. No history of asthma. Past Medical History - Allergies and Home Meds Allergies/Adverse Reactions: Allergies No Known Allergies Allergy (Verified 02/23/19 21:29) Primary Care Physician: Brian Gamboa MD [Primary Care Provider] - 1 Week if not improving Past Medical History: None Surgical History: noncontributory Smoking Status: Current every day smoker Alcohol: None Drugs: None Review of Systems General: Denies: Chills, Fever, Sweats Eyes: Denies: Visual changes - bilaterally, Diplopia ENT: Denies: Rhinorrhea, Sore throat Cardiovascular: Reports: Chest pain. Denies: Palpitations Respiratory: Reports: Dyspnea, Cough, Sputum. Denies: Dyspnea on exertion Gastrointestinal: Denies: Abdominal pain, Nausea, Vomiting, Diarrhea, Melena, Hematochezia Genitourinary: Denies: Dysuria, Hematuria, Frequency Musculoskeletal: Denies: Back pain, Extremity Pain Skin: Denies: Rash, Wounds Neurological: Denies: Headache, Weakness, Numbness Physical Exam Vital Signs/Narrative: Vital Signs Temp Pulse Resp BP Pulse Ox 07/27/20 15:23 97.0 F L 103 H 15 115/79 100 07/27/20 15:17 97.0 F L 103 H 15 115/79 100 Inital Vital Signs reviewed: Yes General: Well nourished, Well developed, No Acute Distress Head: Normocephalic, Atraumatic Eyes: Perrl, EOMI ENT: Moist mucous membranes, No rhinorrhea Neck: Supple, Nontender Cardiovascular: Regular rate, Regular rhythm, No murmurs Respiratory: No distress, Chest nontender, Rhonchi - Rhonchi which improves with cough noted bilaterally Abdomen: Soft, Nontender, Nondistended, Normal bowel sounds Back: Nontender, Normal Inspection Extremities: Nontender, No edema Skin: Normal color, No rash Neurological: Alert, Oriented x3, Cranial nerves II-XII grossly intact, Normal Strength, Normal Sensation Psychological: Normal affect, Normal Mood Diagnostic/Tx/Re-eval - Medical Decision Making My interpretation of the single view portable chest x-ray is no acute infiltrate. Covid test was obtained and negative. Patient will be discharged home with albuterol MDI. Also can write for her to have doxycycline. Patient was advised to return to the emergency room if worsening or concerns ED Disposition - Plan for ED Patient: Disposition: Home or Assisted Living Diagnosis: Acute bronchitis Instructions: ED Bronchitis with Wheezing (Adult) Prescriptions: Doxycycline 100 mg PO BID #14 capsule Transmission Status: Received by [id number] Albuterol Inhaler [Ventolin Hfa] 2 puff INHALATION Q4H PRN PRN #1 inhaler PRN Reason: Wheezing Transmission Status: Received by [id number] Referrals: Brian Gamboa MD [Primary Care Provider] - 1 Week if not improving
[2020-07-27 16:59] VITALS: BP 110/70; PULSE 84; RESP 16; RESP 18; TEMP 37.2; O2SAT 99
== END 2020-07-27 17:01 | disposition home or self-care (01) ==
PROVIDERS: Emergency Provider Emergency Medicine; PCP Family Medicine
DX: J20.9 Acute bronchitis, unspecified (principal); F17.200 Nicotine dependence, unspecified, uncomplicated
CPT/HCPCS: 71045; 87426; 99282

== ENCOUNTER → 2024-09-09 | Outpatient (CLI) | payer MEDICAID, SELFPAY ==
[2024-09-09 10:55] LABS: Hematocrit 41.7 % (37-47); Mean Corp Hgb Conc 33.6 g/dL (32-36); Mean Corpuscular Hgb 29.2 pg (27.0-32.0); Mean Corpuscular Volume 87.1 fL (81-99); Mean Platelet Vol. 8.5 fl (6.2-12.0); Platelet Count 245 K/mm3 (150-450); RBC Distribution Width CV 11.9 % (11.6-14.6); RBC Distribution Width SD 37.8 fl (35.1-43.9); Red Blood Count 4.79 M/mm3 (4.2-5.4); White Blood Count 7.8 K/mm3 (4.4-11.0)
[2024-09-09 11:36] LABS: Anion Gap 9 (5-15); BUN 12 mg/dL (4-19); BUN/Creat Ratio 14.7 RATIO (10-20); Calcium,Total 9.7 mg/dL (7.6-11.0); Carbon Dioxide 26.1 mmol/L (21.0-32.0); Chloride 104 mmol/L (98-108); Creatinine, Serum 0.81 mg/dL (0.70-1.20); EST Glomerular Filtration Rate 98 (>60); Glucose 73 mg/dL (70-99); Potassium 4.2 mmol/L (3.3-5.1); Sodium Level 139 mmol/L (133-145)
== END | disposition home or self-care (01) ==
LOC: LAB 10:31
PROVIDERS: PCP Family Medicine
DX: F41.9 Anxiety disorder, unspecified (principal); F32.A Depression, unspecified; R53.83 Other fatigue
CPT/HCPCS: 36415; 80048; 84439; 84443; 85027